=== PATIENT | female | born 1980 | race Caucasian/White ===

== ENCOUNTER 2020-03-21 19:28 | Emergency (ER) | payer OTHER, SELFPAY ==
[2020-03-21 19:50] VITALS: BP 134/69; PULSE 80; RESP 16; TEMP 36.6; O2SAT 100
--- NOTE | 2020-03-21 21:21 | ED.HA ---
HPI - Headache General Chief Complaint: Headache Stated Complaint: Migraine Time Seen by Provider: 03/21/20 21:06 History of Present Illness HPI Narrative: 39 yo female w/ h/o migraines presents to the ED for a ASHRAF. Severe throbbing headache since yesterday. Continuous. Associated with nausea, dizziness, photophobia. Similar to usual migraines, but did not respond to imitrex. Related Data Allergies Allergy/AdvReac Type Severity Reaction Status Date / Time No Known Allergies Allergy Unknown Unverified 07/21/16 10:23 Review of Systems Review of Systems: All systems reviewed & are unremarkable except as noted in HPI and below Constitutional: Constitutional: Denies chills, Denies fever(s) and Denies weakness ENT: Denies sore throat Cardiovascular: Cardiovascular: Denies chest pain Respiratory: Respiratory: Denies dyspnea Gastrointestinal: Gastrointestinal: Reports nausea and Denies vomiting Genitourinary: Genitourinary: Denies dysuria Musculoskeletal: Musculoskeletal: Denies back pain Neurologic: Denies numbness and Denies weakness [facility] Past Medical History Medical History (Updated 03/22/20 @ 00:00 by Karen Doyle) Anxiety Fibromyalgia IBS (irritable bowel syndrome) Migraine Social History Social History (Updated 03/21/20 @ 21:45 by Nicolas Mancera MD) Substance use: never Gender identity (if verbalized by the patient): Female Exam Const: General: no acute distress, alert and uncomfortable Orientation/consciousness: patient oriented x3 HENMT: Head: normal to inspection Eyes: Pupils: Equal, round and reactive pupils present EOM: EOMs intact bilaterally Resp: Effort & Inspection: normal respiratory effort Skin: General skin exam: normal color Neuro: General: patient oriented x3, moves all extremities, no focal motor deficits and CN's II-XI intact bilaterally Speech: normal speech Gait exam (Neuro): Normal gait present Extrem: General: normal to inspection Course Vital Signs Vital signs: Vital Signs Temperature 36.6 C 03/21/20 19:50 Pulse Rate 80 03/21/20 19:50 Respiratory Rate 16 03/21/20 19:50 Blood Pressure 134/69 03/21/20 19:50 Pulse Oximetry 100 03/21/20 19:50 Temperature 36.7 C 03/21/20 23:27 Pulse Rate 81 03/21/20 23:27 Respiratory Rate 16 03/21/20 23:27 Blood Pressure 131/73 03/21/20 23:27 Pulse Oximetry 100 03/21/20 23:27 MDM - Headache MDM Narrative Medical decision making narrative: Migraine similar to past migraines. I will treat symptomatically and reassess. Headache resolved Differential Diagnosis Differential diagnosis: Likely migraine and other Medical Records Attestation: I reviewed the patient's medical records. Discharge Plan Discharge Clinical Impression: Migraine Patient Disposition: Home, Self-Care Condition: Stable Instructions: Antibiotic Form, Migraine Headache (ED) Follow-up/Referrals: Gypsy,Bruce Ellis MD [Primary Care Provider] -
[2020-03-21] MEDS: KETOROLAC 30 MG/ML VIAL (*BKC) IV PUSH (21:47)
[2020-03-21] MEDS: diphenhydrAMINE HCl INJ 50 MG/ML VIAL IV PUSH (21:47)
[2020-03-21] MEDS: SODIUM CHLORIDE 0.9% IV 1,000 ML 999 ML IV CONT (21:47)
[2020-03-21] MEDS: METOCLOPRAMIDE HCL INJ 10 MG/2 ML VIAL IV PUSH (21:47)
--- NOTE | 2020-03-21 23:19 | PC.NURSE ---
Report received from ZAC Mitchell. Awaiting disposition.
[2020-03-21 23:27] VITALS: BP 131/73; PULSE 81; RESP 16; TEMP 36.7; O2SAT 100
== END 2020-03-21 23:30 | disposition home or self-care (01) ==
PROVIDERS: Emergency Provider Emergency Medicine; PCP Family Medicine
DX: G43.909 Migraine, unspecified, not intractable, without status migrainosus (principal); M79.7 Fibromyalgia; K58.9 Irritable bowel syndrome, unspecified
CPT/HCPCS: 96361; 96365; 96375; 99284; J0131; J1200; J1885; J2765; J7030

== ENCOUNTER 2020-06-13 15:19 | Emergency (ER) | payer OTHER, SELFPAY ==
[2020-06-13 15:34] VITALS: BP 128/75; PULSE 74; RESP 20; TEMP 36.4; O2SAT 99
--- NOTE | 2020-06-13 15:45 | ED.GENADULT ---
HPI - General Adult General Chief complaint: Ear Stated complaint: ear swelling, pain Source: patient Mode of arrival: ambulatory Limitations: no limitations History of Present Illness HPI narrative: Yana is a 39F with a PMH of fibromyalgia, IBS, anxiety and migraine that presented to the ER with bilateral ear pain. They started itching several days ago and she has been cleaning them and using peroxide. After a few days of this they have become very TTP. No hearing changes. She reports allergies but no fevers, chills, SOB, chest pain or abdominal pain. Related Data Allergies Allergy/AdvReac Type Severity Reaction Status Date / Time No Known Allergies Allergy Unknown Unverified 06/13/20 15:41 Review of Systems Constitutional: Constitutional: Reports no additional constitutional complaints Eyes: Eyes: Reports no additional eye complaints ENT: Reports as per HPI Cardiovascular: Cardiovascular: Reports no additional cardiovascular complaints Respiratory: Respiratory: Reports no additional respiratory complaints Gastrointestinal: Gastrointestinal: Reports no additional gastrointestinal complaints Genitourinary: Genitourinary: Reports no additional female genitourinary complaints Musculoskeletal: Musculoskeletal: Reports no additional musculoskeletal complaints Integumentary/Breasts: Skin/Breast: Reports system reviewed and no additional complaints, except as docu Neurologic: Reports system reviewed and no additional complaints, except as documented Psychiatric: Psychiatric: Reports no additional psychiatric complaints Endocrine: Endocrine: Reports no additional endocrine complaints Hematologic/Lymphatic: Hematologic/Lymphatic: Reports no additional hematologic/lymphatic complaints Allergic/Immunologic: Allergic/Immunologic: Reports no additional allergic/immunologic complaints [facility] Past Medical History Medical History Anxiety Fibromyalgia IBS (irritable bowel syndrome) Migraine Social History Social History Substance use: never Gender identity (if verbalized by the patient): Female Exam Const: General: no acute distress and alert Orientation/consciousness: patient oriented x3 Limitations: No altered mental status HENMT: Head: normal to inspection Mouth: Yes Normal oral and palatal mucosa present Other: Both external ear canals are erythematou and TTP. Right is worse than left. She also has some preauricular lymphadenopathy Eyes: Conjunctivae: conjunctivae normal Pupils: Equal, round and reactive pupils present Neck: Neck: normal visual inspection and no lymphadenopathy Chest: Chest palpation & inspection: normal inspection of the chest Resp: Effort & Inspection: normal respiratory effort Cardio: Rate: regular rate Skin: General skin exam: normal color Rashes: no rashes Neuro: General: patient oriented x3, moves all extremities and no focal motor deficits Extrem: General: normal to inspection Psych: Mental Status: mental status grossly normal Affect: normal affect Course Vital Signs Vital signs: Vital Signs Temperature 97.6 F 06/13/20 15:34 Pulse Rate 74 06/13/20 15:34 Respiratory Rate 20 06/13/20 15:34 Blood Pressure 128/75 06/13/20 15:34 Pulse Oximetry 99 06/13/20 15:34 Temperature 97.5 F L 06/13/20 15:51 Pulse Rate 70 06/13/20 15:51 Respiratory Rate 20 06/13/20 15:51 Blood Pressure 126/70 06/13/20 15:51 Pulse Oximetry 99 06/13/20 15:51 Medical Decision Making Vital Signs Vital Signs: Vital Signs Temperature 97.6 F 06/13/20 15:34 Pulse Rate 74 06/13/20 15:34 Respiratory Rate 20 06/13/20 15:34 Blood Pressure 128/75 06/13/20 15:34 Pulse Oximetry 99 06/13/20 15:34 Temperature 97.5 F L 06/13/20 15:51 Pulse Rate 70 06/13/20 15:51 Respiratory Rate 20 06/13/20 15:51 Blood Pressure 126/70
[2020-06-13 15:51] VITALS: BP 126/70; PULSE 70; RESP 20; TEMP 36.4; O2SAT 99
== END 2020-06-13 15:53 | disposition home or self-care (01) ==
PROVIDERS: Emergency Provider Family Medicine; PCP Family Medicine
DX: H60.93 Unspecified otitis externa, bilateral (principal)
CPT/HCPCS: 99283

== ENCOUNTER 2020-09-11 15:22 | Emergency (ER) | payer OTHER, SELFPAY ==
--- NOTE | ~2020-09-11 | XR_ITS ---
XR shoulder LT min 2V 09/11/2020 16:15 INDICATION: Left shoulder pain for 3 days PROCEDURE: 4 views left shoulder COMPARISON: No prior studies for comparison. FINDINGS: Fracture, dislocation or subluxation is not identified. The soft tissues appear within norm al limits. No foreign bodies are identified. IMPRESSION: 1: NO ACUTE BONE OR JOINT ABNORMALITY IDENTIFIED. Reviewed, dictated and finalized at location A.
[2020-09-11 15:41] VITALS: BP 136/81; PULSE 74; RESP 20; TEMP 36.7; O2SAT 97
--- NOTE | 2020-09-11 15:57 | ED.UPPEXIN ---
HPI - Extremity Injury (Upper) General Chief Complaint: Extremity Injury, Upper Stated Complaint: L Shoulder pain Time Seen by Provider: 09/11/20 15:45 Source: patient Mode of arrival: ambulatory Limitations: no limitations History of Present Illness HPI narrative: Patient comes in with pain in left shoulder after being out on the water, tubing and boating. She came home Thursday night, after this activity and has been unable to raise her shoulder up since 1030pm Thursday night. Pain has been sharp, relatively severe, made worse with movement, better with rest. There has been no known injury. She has taken ibuprofen and tylenol at home for this discomfort, with minimal relief. complaint: injury to: left and shoulder Onset (ago): day(s) Other injuries: none Place: home Severity: moderate Relieving factors: immobilization Exacerbating factors: movement of extremity Context: other (no known injury) Associated symptoms: denies other symptoms Treatments prior to arrival: NSAIDS Related Data Allergies Allergy/AdvReac Type Severity Reaction Status Date / Time No Known Allergies Allergy Unknown Unverified 09/11/20 15:48 Review of Systems Constitutional: Constitutional: Reports no additional constitutional complaints Eyes: Eyes: Reports no additional eye complaints ENT: Reports system reviewed and no additional complaints, except as documented Cardiovascular: Cardiovascular: Reports no additional cardiovascular complaints Respiratory: Respiratory: Reports no additional respiratory complaints Gastrointestinal: Gastrointestinal: Reports no additional gastrointestinal complaints Genitourinary: Genitourinary: Reports no additional female genitourinary complaints Musculoskeletal: Musculoskeletal: Reports no additional musculoskeletal complaints Integumentary/Breasts: Skin/Breast: Reports system reviewed and no additional complaints, except as docu Neurologic: Reports system reviewed and no additional complaints, except as documented Psychiatric: Psychiatric: Reports no additional psychiatric complaints Endocrine: Endocrine: Reports no additional endocrine complaints Hematologic/Lymphatic: Hematologic/Lymphatic: Reports no additional hematologic/lymphatic complaints Allergic/Immunologic: Allergic/Immunologic: Reports no additional allergic/immunologic complaints [facility] Past Medical History Medical History Anxiety Carpal tunnel syndrome Fibromyalgia IBS (irritable bowel syndrome) Migraine Surgical History Surgical History H/O knee surgery H/O: hysterectomy Family History Family History Mother Colon cancer Hypertension Hyperlipidemia Social History Social History (Updated 09/11/20 @ 16:19 by Jose Eduardo Morse MD) Smoking packs per day: 0.5 Smoking cigarettes per day: 10.0 Smoking status: Current every day smoker Tobacco type: cigarettes Alcohol intake: never Substance use: never Living arrangements: with family Gender identity (if verbalized by the patient): Female Sexual Orientation (if Verbalized by the Patient): Straight or Heterosexual Exam Const: General: alert Orientation/consciousness: patient oriented x3 HENMT: Head: normal to inspection Ears: external ears normal and TM's normal bilaterally General nose exam: Normal external nose present Mouth: Yes Normal oral and palatal mucosa present Throat: posterior oropharynx normal Eyes: Conjunctivae: conjunctivae normal Neck: Neck: normal visual inspection Lymphatic: no lymphadenopathy noted Chest: Chest palpation & inspection: normal inspection of the chest Resp: Effort & Inspection: normal respiratory effort Auscultation: clear to auscultation bilaterally Cardio: Rate: regular rate Rhythm: regular rhythm GI: GI Palp: Yes Soft to palpation (nontender) Back/Spine/Pelvis:
[2020-09-11] MEDS: BACLOFEN 10 MG TABLET 20 MG PO (16:32)
[2020-09-11] MEDS: DEXAMETHASONE 4 MG TABLET 12 MG PO (16:32)
[2020-09-11] MEDS: KETOROLAC (*BKC) 60 MG/2 ML VIAL IM (16:32)
[2020-09-11 17:07] VITALS: BP 122/82; PULSE 98; RESP 20; TEMP 36.9; O2SAT 99
== END 2020-09-11 17:10 | disposition home or self-care (01) ==
PROVIDERS: Emergency Provider Emergency Medicine; PCP Family Medicine
DX: S43.102A Unspecified dislocation of left acromioclavicular joint, initial encounter (principal)
CPT/HCPCS: 73030; 96372; 99283; A4565; A9270; J1885; J8540

== ENCOUNTER 2021-02-27 11:02 | Emergency (ER) | payer BC, SELFPAY ==
--- NOTE | 2021-02-27 11:09 | ECG_ITS ---
Measurements Intervals [place] Rate: 85 P: 64 W[place]: 164 QRS: 73 QRSD: 80 T: 41 QT: 389 QTc: 464 Interpretive Statements SINUS RHYTHM DELAYED PRECORDIAL R/S TRANSITION BASELINE ARTIFACT- I, II, III, AVR, AVL, AVF, V2, V4-V6 BORDERLINE ECG Electronically Signed On 02-27-2021 12:01:52 PROMOTION OFFICER by Korey Melvin D.O.
--- NOTE | 2021-02-27 11:14 | PC.NURSE ---
Floor called to notify Dr. Savage who is doing rounds that pt is in the department with palpitations.
[2021-02-27 11:17] VITALS: BP 124/81; PULSE 83; RESP 18; TEMP 36.2; O2SAT 97
[2021-02-27 11:22] VITALS: PULSE 85
--- NOTE | 2021-02-27 11:37 | ED.ARRPALP ---
HPI - Arrhythmia/Palpitations General Chief Complaint: Arrhythmia/Palpitations Stated Complaint: anxiety attack Time Seen by Provider: 02/27/21 11:38 Source: patient History of Present Illness HPI narrative: 40-year-old female with a history of anxiety, IBS, fibromyalgia, migraine status post partial hysterectomy presented to the ER with -- palpitation -- anxiety -- chest discomfort. no chest pain -- Shortness of breath she had a similar episode 2 days ago and took her relatives Ativan which provided relief MD complaint: rapid heart beat, heart racing and palpitations Onset (ago): day(s) ( she has been having it off and on for the past 3 days.) Duration: intermittent Severity: severe Context: occurred during rest Associated symptoms: denies other symptoms, shortness of breath, near-syncope and anxiety Related Data Allergies Allergy/AdvReac Type Severity Reaction Status Date / Time No Known Allergies Allergy Unknown Unverified 09/11/20 15:48 Review of Systems Review of Systems: All systems reviewed & are unremarkable except as noted in HPI and below Constitutional: Constitutional: Reports as per HPI and Reports no additional constitutional complaints Eyes: Eyes: Reports as per HPI and Reports no additional eye complaints ENT: Reports system reviewed and no additional complaints, except as documented and Reports as per HPI Cardiovascular: Cardiovascular: Reports as per HPI, Reports no additional cardiovascular complaints, Reports rapid heart rate, Reports lightheadedness and Reports dyspnea Respiratory: Respiratory: Reports as per HPI and Reports dyspnea Gastrointestinal: Gastrointestinal: Reports as per HPI and Reports no additional gastrointestinal complaints Genitourinary: Genitourinary: Reports no additional female genitourinary complaints and Reports as per HPI Musculoskeletal: Musculoskeletal: Reports no additional musculoskeletal complaints and Reports as per HPI Integumentary/Breasts: Skin/Breast: Reports system reviewed and no additional complaints, except as docu and Reports as per HPI Neurologic: Reports system reviewed and no additional complaints, except as documented and Reports as per HPI Psychiatric: Psychiatric: Reports no additional psychiatric complaints and Reports as per HPI Endocrine: Endocrine: Reports no additional endocrine complaints and Reports as per HPI Hematologic/Lymphatic: Hematologic/Lymphatic: Reports no additional hematologic/lymphatic complaints Allergic/Immunologic: Allergic/Immunologic: Reports no additional allergic/immunologic complaints [facility] Past Medical History Medical History Anxiety Carpal tunnel syndrome Fibromyalgia IBS (irritable bowel syndrome) Migraine Surgical History Surgical History H/O knee surgery H/O: hysterectomy Family History Family History Mother Colon cancer Hypertension Hyperlipidemia Social History Social History Smoking packs per day: 0.5 Smoking cigarettes per day: 10.0 Smoking status: Current every day smoker Tobacco type: cigarettes Alcohol intake: never Substance use: never Gender identity (if verbalized by the patient): Female Sexual Orientation (if Verbalized by the Patient): Straight or Heterosexual Exam Const: General: cooperative and healthy appearing HENMT: Head: normal to inspection and No palpable skull fracture present Ears: hearing grossly normal bilaterally General nose exam: Normal external nose present and Normal nares present Face and sinus: normal facial exam and sinuses nontender Mouth: Yes Normal oral and palatal mucosa present, Yes lip normal and Yes tongue normal Throat: posterior oropharynx normal Eyes: General: appearance normal, both eyes and all related structures
[2021-02-27 12:09] LABS: Basophils Absolute Auto 0.06 K/mm3 (0.00-0.10); Basophils Percent Auto 0.6 % (0.0-1.0); Eosinophils Absolute Auto 0.49 K/mm3 (0.02-0.50); Eosinophils Percent Auto 5.1 % (1.0-6.0); Hematocrit 39.9 % (35.0-49.0); Hemoglobin 13.3 g/dL (12.0-15.0); Immature Granulocyte Absolute 0.04 K/mm3 (0.00-0.00); Immature Granulocyte Percent A 0.4 % (0.0-0.0); Lymphocytes Absolute Auto 3.15 K/mm3 (1.10-4.50); Lymphocytes Percent Auto 32.8 % (18.0-42.0); Mean Corpuscular HGB Conc 33.3 g/dL (32.0-36.0); Mean Corpuscular Volume 96.1 fL (78.0-102.0); Mean Platelet Volume 10.2 fl (9.2-11.8); Monocytes Absolute Auto 0.59 K/mm3 (0.10-0.90); Monocytes Percent Auto 6.1 % (2.0-11.0); Neutrophils Absolute Auto 5.3 K/mm3 (1.7-7.2); Platelet Count Result 300 K/mm3 (150-420); Red Blood Count 4.15 M/mm3 (4.20-5.40); Red Cell Distribution Width 11.8 % (11.6-14.4); White Blood Count 9.6 K/mm3 (4.8-10.8)
[2021-02-27 12:33] LABS: Alanine Aminotransferase 19 U/L (14-59); Albumin Level 3.5 g/dL (3.4-5.0); Alkaline Phosphatase 74 U/L (46-116); Anion Gap 8 mmol/L (8-16); Aspartate Amino Transferase 12 U/L (15-37); Bilirubin,Total 0.2 mg/dL (0.00-1.00); Blood Urea Nitrogen 7 mg/dL (7-18); Calcium 8.5 mg/dL (8.5-10.1); Carbon Dioxide 28 mmol/L (21-32); Chloride 103 mmol/L (98-108); Estimated CRCL calculation 91 ml/min; Estimated Glomerular Filt Rate > 60; Glucose 100 mg/dL (70-99); NT Pro B Type Natriuretic Pept 75 pg/mL (0-125); Osmolality Calculated 286 mOsm/kg (285-295); Potassium 3.8 mmol/L (3.5-5.1); Sodium 139 mmol/L (136-145); Thyroid Stimulating Hormone 0.95 uIU/mL (0.36-3.74); Total Protein 7.2 g/dL (6.4-8.2); Troponin I 4.8 ng/L (0.00-60.4)
[2021-02-27 12:38] VITALS: BP 118/65; PULSE 75; RESP 19; O2SAT 96
[2021-02-27 13:26] VITALS: BP 122/77; PULSE 67; RESP 16; TEMP 36.2; O2SAT 98
== END 2021-02-27 13:34 | disposition home or self-care (01) ==
PROVIDERS: Emergency Provider Internal Medicine Critical Care Medicine; PCP Family Medicine
DX: F41.0 Panic disorder [episodic paroxysmal anxiety] (principal); F41.9 Anxiety disorder, unspecified; R06.02 Shortness of breath
CPT/HCPCS: 36415; 80053; 83880; 84443; 84484; 85025; 93005; 99283; 99284

== ENCOUNTER 2022-01-27 22:38 | Emergency (ER) | payer BC, SELFPAY ==
[2022-01-27 22:52] VITALS: BP 126/70; PULSE 71; RESP 18; TEMP 36; O2SAT 95
--- NOTE | 2022-01-27 23:13 | ED.EAR ---
HPI - Ear Problem General Chief complaint: Ear Stated complaint: loss of hearing in left ear and neck pain Time Seen by Provider: 01/27/22 22:40 Source: patient and RN notes reviewed Mode of arrival: ambulatory Limitations: no limitations History of Present Illness Complaint: ear pain Location: left ear Duration: constant Severity: mild Relieving factors: nothing Exacerbating factors: nothing Discharge from ear: Reports no Associated symptoms ear: decreased hearing Treatment prior to arrival: eardrops and attempt at ear wax removal Related Data Home Medications Medication Instructions Recorded Confirmed escitalopram oxalate 10 mg tablet 10 mg DAILY 01/27/22 01/27/22 gabapentin 100 mg capsule 200 mg TID 01/27/22 01/27/22 Allergies Allergy/AdvReac Type Severity Reaction Status Date / Time No Known Allergies Allergy Unknown Verified 01/27/22 22:50 Review of Systems Review of Systems: All systems reviewed & are unremarkable except as noted in HPI and below Constitutional: Constitutional: Reports no additional constitutional complaints Eyes: Eyes: Reports no additional eye complaints ENT: Reports system reviewed and no additional complaints, except as documented and Reports dizziness Comments: left ear fulness Cardiovascular: Cardiovascular: Reports no additional cardiovascular complaints Respiratory: Respiratory: Reports no additional respiratory complaints Gastrointestinal: Gastrointestinal: Reports no additional gastrointestinal complaints Genitourinary: Genitourinary: Reports no additional female genitourinary complaints Musculoskeletal: Musculoskeletal: Reports no additional musculoskeletal complaints Integumentary/Breasts: Skin/Breast: Reports system reviewed and no additional complaints, except as docu Neurologic: Reports system reviewed and no additional complaints, except as documented Psychiatric: Psychiatric: Reports no additional psychiatric complaints Endocrine: Endocrine: Reports no additional endocrine complaints Hematologic/Lymphatic: Hematologic/Lymphatic: Reports no additional hematologic/lymphatic complaints Allergic/Immunologic: Allergic/Immunologic: Reports no additional allergic/immunologic complaints [facility] Past Medical History Medical History Anxiety Carpal tunnel syndrome COVID-19 Eustachian tube dysfunction Fibromyalgia Healthcare maintenance IBS (irritable bowel syndrome) Migraine URI (upper respiratory infection) Surgical History Surgical History H/O knee surgery H/O: hysterectomy Family History Family History Mother Colon cancer Hypertension Hyperlipidemia Social History Social History Smoking packs per day: 0.5 Smoking cigarettes per day: 10.0 Smoking status: Current every day smoker Tobacco type: cigarettes Alcohol intake: never Substance use: never Gender identity (if verbalized by the patient): Female Sexual Orientation (if Verbalized by the Patient): Straight or Heterosexual Exam Const: General: no acute distress and well nourished Nutritional Appearance: well nourished Orientation/consciousness: patient oriented x3 Limitations: no limitations HENMT: Head: normal to inspection Ears: external ears normal, TM's normal bilaterally and EAC's normal Face/Nose/Sinus: Normal external nose present, Normal nares present, normal facial exam and sinuses nontender Face and sinus: normal facial exam and sinuses nontender Mouth: Yes Normal oral and palatal mucosa present and Yes moist mucous membranes Teeth and gingiva: dentition normal Throat: posterior oropharynx normal Other: bilateral mild cerumen impaction, pharynx clear. Eyes: Conjunctivae: conjunctivae normal Pupils: Equal, round and reactive pupils prese
[2022-01-27] MEDS: guaiFENesin 12 HR 600 MG TABCR PO (23:26)
[2022-01-27] MEDS: ACETAMINOPHEN 325 MG TABLET 650 MG PO (23:26)
== END 2022-01-27 23:37 | disposition home or self-care (01) ==
PROVIDERS: Emergency Provider Emergency Medicine; PCP Family Medicine
DX: H69.92 Unspecified Eustachian tube disorder, left ear (principal)
CPT/HCPCS: 99283; A9270

== ENCOUNTER 2022-02-18 11:30 | Outpatient (CLI) | payer BC, SELFPAY ==
--- NOTE | ~2022-02-18 | XR_ITS ---
Lumbosacral Spine: AP and lateral views Clinical History: Pain The normal lordotic curve is maintained. The vertebral bodies and posterior elements are intact. Th e intervertebral disc spaces are preserved. The sacroiliac joints are normally outlined. Impression: No significant abnormality. Reviewed, dictated and finalized at location [] CAL OFFICE CLERK Impression: No significant abnormality.
--- NOTE | ~2022-02-18 | XR_ITS ---
AP view of the pelvis and AP and lateral views of the bilateral hips Clinical history: Paresthesia Findings: No acute fracture or dislocation is seen. Osseous alignment is anatomic. Bilateral hip and SI joint spaces are preserved. Soft tissues are unremarkable. Impression: No significant abnormality is seen. Reviewed, dictated and finalized at location [] DESIGNER Impression: No significant abnormality is seen.
--- NOTE | ~2022-02-18 | XR_ITS ---
XR knee RT 3V 02/18/2022 11:54 Indication: Right knee numbness with tingling Procedure: 3 views right knee Comparison: No prior studies for comparison. Findings: There is anatomic alignment. No fracture, subluxation or dislocation. No significant joint space narrowing. No joint effusion. Impression: 1: No significant bone or joint abnormality. Reviewed, dictated and finalized at location B. VISION OPERATOR Impression: 1: No significant bone or joint abnormality.
== END 2022-02-18 11:31 | disposition home or self-care (01) ==
PROVIDERS: PCP Family Medicine; Visit Provider Nurse Practitioner Family
DX: R20.0 Anesthesia of skin (principal); R20.2 Paresthesia of skin; M54.50 Low back pain, unspecified
CPT/HCPCS: 72100; 73521; 73562

== ENCOUNTER 2022-03-17 12:02 | Outpatient (CLI) | payer BC, SELFPAY ==
--- NOTE | ~2022-03-17 | XR_ITS ---
EXAMINATION: XR chest 2V DATE: 03/17/2022 12:35 INDICATION: Cough and shortness of breath TECHNIQUE: PA and lateral views of the chest are obtained. COMPARISON: 12/08/2016 FINDINGS: The lungs are free of acute opacities. No pleural effusion or pneumothorax. The cardiomedia stinal silhouette is normal. There is mild thoracic spondylosis. IMPRESSION: 1. No acute cardiopulmonary abnormality. Reviewed, dictated and finalized at location B. N PLANNING PROFESSOR
== END 2022-03-17 12:03 | disposition home or self-care (01) ==
PROVIDERS: PCP Nurse Practitioner Family; Visit Provider Nurse Practitioner Family
DX: R09.89 Other specified symptoms and signs involving the circulatory and respiratory systems (principal)
CPT/HCPCS: 71046

== ENCOUNTER 2022-05-31 08:07 | Outpatient (CLI) | payer BC, SELFPAY ==
--- NOTE | ~2022-05-31 | MR_ITS ---
MRI of the brain Clinical History: Chronic headache Technique: Axial and sagittal T1-weighted images were acquired. These were followed by axial T2-weigh haily, diffusion weighted, gradient, and FLAIR images. Findings: No signal abnormality seen in the brain parenchyma. No acute infarct, intracranial hemorrha ge, or mass lesion. Ventricles and subarachnoid spaces are unremarkable. Orbits are unremarkable. There is minimal sinus disease the floor the bilateral maxillary sinuses. Remaining paranasal sinuses and mastoid air cells are essentially clear. Major intracranial flow voids appear intact. Sagittal midline structures are intact. IMPRESSION: No intracranial abnormality. Minimal sinus disease, as above. Reviewed, dictated and finalized at location .
== END 2022-05-31 08:08 | disposition home or self-care (01) ==
LOC: CHSIMG 08:09
PROVIDERS: PCP Family Medicine; Visit Provider Family Medicine
DX: G89.29 Other chronic pain (principal); R51.9 Headache, unspecified; J32.9 Chronic sinusitis, unspecified
CPT/HCPCS: 70551

== ENCOUNTER 2022-06-29 03:13 | Emergency (ER) | payer BC, OTHER, SELFPAY ==
[2022-06-29 03:18] VITALS: BP 118/70; PULSE 82; RESP 20; TEMP 36.6; O2SAT 96
--- NOTE | 2022-06-29 03:26 | ED.URI ---
HPI - URI/Sore Throat General Chief Complaint: Unspecified Stated Complaint: Sore Throat Time Seen by Provider: 06/29/22 03:26 Source: patient and RN notes reviewed Mode of arrival: ambulatory Limitations: no limitations History of Present Illness MD elicited complaint: cough and sore throat Onset (ago): day(s) (3) Consistency: constant Severity: moderate Description of mucous: clear Able to tolerate fluids by mouth: Yes Exacerbating factors: nothing Relieving factors: nothing Associated symptoms: denies other symptoms Treatments prior to arrival: none Related Data Home Medications Medication Instructions Recorded Confirmed escitalopram oxalate 10 mg tablet 10 mg DAILY 01/27/22 06/29/22 prazosin 1 mg capsule 1 mg PO QHS 02/18/22 06/29/22 Allergies Allergy/AdvReac Type Severity Reaction Status Date / Time No Known Allergies Allergy Unknown Verified 05/22/22 08:24 Review of Systems Review of Systems: All systems reviewed & are unremarkable except as noted in HPI and below Constitutional: Constitutional: Denies chills and Denies fever(s) ENT: Denies nasal congestion Respiratory: Respiratory: Denies dyspnea Gastrointestinal: Gastrointestinal: Denies diarrhea, Denies nausea and Denies vomiting Neurologic: Denies headache(s) PMFSH Past Medical History Medical History Anxiety Carpal tunnel syndrome COVID-19 Eustachian tube dysfunction Fibromyalgia Healthcare maintenance IBS (irritable bowel syndrome) Migraine URI (upper respiratory infection) Surgical History Surgical History H/O knee surgery H/O: hysterectomy Family History Family History Mother Colon cancer Hypertension Hyperlipidemia Social History Social History Smoking packs per day: 0.5 Smoking cigarettes per day: 10.0 Smoking status: Current every day smoker Tobacco type: cigarettes Alcohol intake: never Substance use: never Living arrangements: with family Gender identity (if verbalized by the patient): Female Sexual Orientation (if Verbalized by the Patient): Straight or Heterosexual Exam Const: General: healthy appearing, no acute distress and alert Nutritional Appearance: well nourished Orientation/consciousness: patient oriented x3 Limitations: no limitations Other: female tech in room during examination. HENMT: Head: normal to inspection Ears: external ears normal and TM abnormal Face/Nose/Sinus: Normal external nose present Face and sinus: normal facial exam Mouth: Yes moist mucous membranes Throat: uvula midline and abnormal tonsil bilateral erythema and exudates Eyes: Conjunctivae: conjunctivae normal Pupils: Equal, round and reactive pupils present EOM: EOMs intact bilaterally Neck: Neck: normal visual inspection and lymphadenopathy right anterior cervical soft, mobile and tender Resp: Effort & Inspection: normal respiratory effort Auscultation: clear to auscultation bilaterally Cardio: Rate: regular rate Rhythm: regular rhythm GI: GI Palp: Yes Soft to palpation and No Tenderness to palpation present (GI) Auscultation: normal bowel sounds Back/Spine/Pelvis: Cervical Spine: cervical ROM normal Thoracic/Lumbar Spine: thoraco-lumbar ROM normal Skin: General skin exam: normal color Rashes: no rashes Neuro: General: patient oriented x3, moves all extremities, no focal motor deficits and CN's II-XI intact bilaterally Speech: normal speech Gait exam (Neuro): Normal gait present Extrem: General: normal to inspection and no clubbing, cyanosis or edema Psych: Mental Status: mental status grossly normal Affect: normal affect Attitude: cooperative Course Vital Signs Vital signs: Vital Signs Temperature 36.6 C 06/29/22 03:18 Pulse Rate 82 06/29/22 03:18 Respiratory
--- NOTE | 2022-06-29 03:52 | PC.NURSE ---
Accompanied Dr. Suarez on doing a examine on patient.
[2022-06-29 04:13] LABS: Influenza A QL RT-PCR Negative (Negative); Influenza B QL RT-PCR Negative (Negative); RSV RNA, RT-PCR Negative (Negative); SARS-CoV-2 RNA PCR Negative (Negative); Strep Group A RT-PCR NOT DETECTED (Negative)
[2022-06-29 04:42] VITALS: BP 120/70; PULSE 88; RESP 18; TEMP 36.8; O2SAT 97
== END 2022-06-29 04:43 | disposition home or self-care (01) ==
PROVIDERS: Emergency Provider Emergency Medicine; PCP Family Medicine
DX: J00 Acute nasopharyngitis [common cold] (principal); F17.210 Nicotine dependence, cigarettes, uncomplicated; Z20.822 Contact with and (suspected) exposure to COVID-19
CPT/HCPCS: 87637; 87651; 99282

== ENCOUNTER 2022-07-16 18:18 | Emergency (ER) | payer BC, SELFPAY ==
[2022-07-16 18:18] VITALS: BP 140/69; PULSE 87; RESP 19; TEMP 36.1; O2SAT 97
--- NOTE | 2022-07-16 18:27 | ED.EAR ---
HPI - Ear Problem General Chief complaint: Ear Stated complaint: ear pain and drainage Time Seen by Provider: 07/16/22 18:25 Source: patient Mode of arrival: ambulatory Limitations: no limitations History of Present Illness HPI Narrative: 41-year-old female with a history of otitis media presents to the ER with -- chronic right ear pain and discharge. The past few days the patient has been having bloody and purulent discharge. Chronic decreased hearing right ear The patient has been using fluocinolone ear drops -- left ear pain without any discharge. No fever or chills. MD Complaint: ear pain and ear discharge Location: bilateral Duration: constant Severity: moderate Relieving factors: nothing Exacerbating factors: nothing Discharge from ear: Reports yes - bloody ( from right ear) and yes - purulent Associated symptoms ear: decreased hearing and external ear tenderness Treatment prior to arrival: eardrops Related Data Home Medications Medication Instructions Recorded Confirmed escitalopram oxalate 10 mg tablet 10 mg DAILY 01/27/22 07/16/22 prazosin 1 mg capsule 1 mg PO QHS 02/18/22 07/16/22 Allergies Allergy/AdvReac Type Severity Reaction Status Date / Time No Known Allergies Allergy Unknown Verified 07/16/22 18:38 Review of Systems Review of Systems: All systems reviewed & are unremarkable except as noted in HPI and below Constitutional: Constitutional: Reports as per HPI and Reports no additional constitutional complaints Eyes: Eyes: Reports as per HPI and Reports no additional eye complaints Comments: xanthelasma right ear ENT: Reports system reviewed and no additional complaints, except as documented Cardiovascular: Cardiovascular: Reports as per HPI and Reports no additional cardiovascular complaints Respiratory: Respiratory: Reports as per HPI and Reports no additional respiratory complaints Gastrointestinal: Gastrointestinal: Reports as per HPI and Reports no additional gastrointestinal complaints Genitourinary: Genitourinary: Reports no additional female genitourinary complaints and Reports as per HPI Comments: status post 3 normal vaginal deliveries Musculoskeletal: Musculoskeletal: Reports no additional musculoskeletal complaints and Reports as per HPI Integumentary/Breasts: Skin/Breast: Reports system reviewed and no additional complaints, except as docu and Reports as per HPI Neurologic: Reports system reviewed and no additional complaints, except as documented and Reports as per HPI Psychiatric: Psychiatric: Reports no additional psychiatric complaints and Reports as per HPI Endocrine: Endocrine: Reports no additional endocrine complaints and Reports as per HPI Hematologic/Lymphatic: Hematologic/Lymphatic: Reports no additional hematologic/lymphatic complaints and Reports as per HPI Allergic/Immunologic: Allergic/Immunologic: Reports no additional allergic/immunologic complaints and Reports as per HPI PMFSH Past Medical History Medical History Anxiety Carpal tunnel syndrome COVID-19 Eustachian tube dysfunction Fibromyalgia Healthcare maintenance IBS (irritable bowel syndrome) Migraine URI (upper respiratory infection) Surgical History Surgical History H/O knee surgery H/O: hysterectomy Family History Family History Mother Colon cancer Hypertension Hyperlipidemia Social History Social History Smoking packs per day: 0.5 Smoking cigarettes per day: 10.0 Smoking status: Current every day smoker Tobacco type: cigarettes Alcohol intake: never Substance use: never Living arrangements: with family Gender identity (if verbalized by the patient): Female Sexual Orientation (if Verbalized by the Patient): Straight or Heterosexu
[2022-07-16 19:55] VITALS: BP 139/80; PULSE 89; RESP 18; TEMP 36.2; O2SAT 98
[2022-07-16] MEDS: AMOXICILLIN/CLAVULANATE K 875-125 MG TAB 1 TABLET PO (19:58)
== END 2022-07-16 20:00 | disposition home or self-care (01) ==
PROVIDERS: Emergency Provider Internal Medicine Critical Care Medicine; PCP Family Medicine
DX: H66.91 Otitis media, unspecified, right ear (principal); F17.210 Nicotine dependence, cigarettes, uncomplicated
CPT/HCPCS: 99283; A9270